=== PATIENT | female | born 1970 | race Caucasian/White ===

== ENCOUNTER 2016-03-14 15:59 | Emergency (ER) | payer OTHER ==
[~2016-03-14] VITALS: Ht 170.2 cm; Wt 56.5 kg
[~2016-03-14 15:59] MED LIST: ADVAIR 500/501 DISK IH; AMITIZA24 MICROGR PO; BOTOX100 UNITS IJ; CYCLOCORT TP; EFFEXOR XR150 MG PO; FIORICET,ESG1 TABLET PO; IMITREX100 MG PO; IMITREX25 MG PO; KLONOPIN1 MG PO; NEURONTIN300 MG PO; PREMARIN0.625 MG PO; PROAIR HFA8.5 GM IH; PROMETHAZINE HC25 M1 PO; PROTONIX40 MG PO; PROVENTIL,2.5 MG/3 M IH; REQUIP2 MG PO; SEROQUEL100 MG PO; TESSALON PERLE100 MG PO; TOPAMAX25 MG PO; UNABLEOBTAIN; ZANAFLEX4 MG PO; ZOHYDRO ER15 M1 PO
[2016-03-14 16:19] LABS: HEMATOCRIT 37.5 % (36.0-46.0); MCH 30.5 PG (29.0-34.0); MCHC 33.3 G/DL (30.0-36.0); MCV 91.5 FL (83-99); MEAN PLAT.VOLUME 11.1 uM^3 (9.5-12.4); PLATELET COUNT 165 K/uL (156-360); RBC DIS.WIDTH-CV 12.8 % (11.8-14.6); RBC DIS.WIDTH-SD 42.2 % (39-53); WHITE BLOOD COUNT 8.6 K/uL (4.1-10.2)
[2016-03-14 16:34] LABS: CHLORIDE 102 mEq/L (99-109); POTASSIUM 3.7 mEq/L (3.7-5.4); SODIUM 140 mEq/L (136-147)
[2016-03-14 16:35] LABS: GLUCOSE 94 mg/dL (70-99)
[2016-03-14 16:37] LABS: ANION GAP 9 MEQ/L (2-14)
[2016-03-14 16:39] LABS: GFR ESTIMATE (CALCULATED) > 59 mL/min/
[2016-03-14 16:40] LABS: UREA NITROGEN (BUN) 10 mg/dL (9-23)
[2016-03-14] MEDS ORDERED: VENTOLIN HFA18 GM IH (17:52)
[2016-03-14] MEDS ORDERED: PREDNISONE20 MG PO (17:52)
[2016-03-14] MEDS ORDERED: HYCODAN SYRUP480 ML PO (17:52)
[2016-03-14 18:04] VITALS: BP 101/68
== END 2016-03-14 18:06 | disposition home or self-care (01) ==
LOC: EME 15:59
DX: J06.9 Acute upper respiratory infection, unspecified (principal); J45.909 Unspecified asthma, uncomplicated; G43.909 Migraine, unspecified, not intractable, without status migrainosus; Z87.891 Personal history of nicotine dependence
CPT/HCPCS: 71020; 80048; 85027; 99281; 99284

== ENCOUNTER 2016-03-31 16:31 | Emergency (ER) | payer OTHER ==
[~2016-03-31] VITALS: Ht 170.2 cm; Wt 57.8 kg
[~2016-03-31 16:31] MED LIST changes: +HYCODAN SYRUP480 ML PO; +PREDNISONE20 MG PO; +VENTOLIN HFA18 GM IH
[2016-03-31 16:53] VITALS: BP 109/76
[2016-03-31 17:22] LABS: HEMATOCRIT 39.6 % (36.0-46.0); MCH 30.5 PG (29.0-34.0); MCHC 33.1 G/DL (30.0-36.0); MCV 92.3 FL (83-99); RBC DIS.WIDTH-CV 12.9 % (11.8-14.6); RBC DIS.WIDTH-SD 41.9 % (39-53); RED BLOOD COUNT 4.29 M/uL (3.80-5.20); WHITE BLOOD COUNT 8.9 K/uL (4.1-10.2)
[2016-03-31 17:31] LABS: MEAN PLAT.VOLUME 10.2 uM^3 (9.5-12.4)
[2016-03-31 17:32] LABS: CHLORIDE 104 mEq/L (99-109); PLATELET COUNT 270 K/uL (156-360); POTASSIUM 3.5 mEq/L (3.7-5.4); SODIUM 142 mEq/L (136-147)
[2016-03-31 17:34] LABS: GLUCOSE 76 mg/dL (70-99)
[2016-03-31 17:35] LABS: ANION GAP 13 MEQ/L (2-14)
[2016-03-31 17:37] LABS: GFR ESTIMATE (CALCULATED) > 59 mL/min/
[2016-03-31 17:38] LABS: UREA NITROGEN (BUN) 9 mg/dL (9-23)
== END 2016-03-31 18:49 | disposition left against medical advice (07) ==
LOC: EME 16:31 → RME 16:31
DX: R05 Cough (principal); R53.1 Weakness; R51 Headache; Z53.21 Procedure and treatment not carried out due to patient leaving prior to being seen by health care provider
CPT/HCPCS: 71020; 80048; 85027

== ENCOUNTER 2016-05-28 11:25 | Emergency (ER) | payer OTHER ==
[~2016-05-28] VITALS: Ht 170.2 cm; Wt 55.6 kg
[2016-05-28 14:19] VITALS: BP 115/69
== END 2016-05-28 14:22 | disposition home or self-care (01) ==
LOC: EME 11:25
DX: F43.9 Reaction to severe stress, unspecified (principal); G43.909 Migraine, unspecified, not intractable, without status migrainosus; F41.9 Anxiety disorder, unspecified; F33.2 Major depressive disorder, recurrent severe without psychotic features; F60.9 Personality disorder, unspecified; J45.909 Unspecified asthma, uncomplicated; J30.81 Allergic rhinitis due to animal (cat) (dog) hair and dander; Z88.1 Allergy status to other antibiotic agents; Z88.0 Allergy status to penicillin; Z91.041 Radiographic dye allergy status; J30.2 Other seasonal allergic rhinitis; Z88.8 Allergy status to other drugs, medicaments and biological substances; Z87.891 Personal history of nicotine dependence
CPT/HCPCS: 90837; 99281; 99285

== ENCOUNTER 2016-06-13 17:41 | Emergency (ER) | payer OTHER ==
[~2016-06-13] VITALS: Ht 170.2 cm; Wt 57.7 kg
[2016-06-13] MEDS ORDERED: PROVENTIL,2.5 MG/3 M IH (22:02)
[2016-06-13 22:18] VITALS: BP 107/71
== END 2016-06-13 22:22 | disposition home or self-care (01) ==
LOC: EME 17:41
DX: G43.909 Migraine, unspecified, not intractable, without status migrainosus (principal)
CPT/HCPCS: 99281; 99285; J1200; J1885; J2765; J7040; J7050

== ENCOUNTER 2016-07-22 13:59 | Emergency (ER) | payer OTHER ==
[~2016-07-22] VITALS: Ht 170.2 cm; Wt 56.6 kg
[2016-07-22 17:47] VITALS: BP 83/51
== END 2016-07-22 17:55 | disposition home or self-care (01) ==
LOC: EME 13:59
DX: G43.909 Migraine, unspecified, not intractable, without status migrainosus (principal); M25.532 Pain in left wrist; M25.432 Effusion, left wrist; J45.909 Unspecified asthma, uncomplicated; K21.9 Gastro-esophageal reflux disease without esophagitis; Z87.891 Personal history of nicotine dependence
CPT/HCPCS: 73110; 99281; 99285; J1200; J2765; J7030; J7050

== ENCOUNTER 2016-08-07 17:02 | Emergency (ER) | payer OTHER ==
[~2016-08-07] VITALS: Ht 170.2 cm; Wt 57.0 kg
[2016-08-07] MEDS ORDERED: LEVAQUIN750 MG PO (19:02)
[2016-08-07] MEDS ORDERED: VENTOLIN HFA18 GM IH (19:02)
[2016-08-07] MEDS ORDERED: HYCODAN SYRUP480 ML PO (19:02)
[2016-08-07 19:35] VITALS: BP 108/75
== END 2016-08-07 19:44 | disposition home or self-care (01) ==
LOC: EME 17:02
DX: J20.9 Acute bronchitis, unspecified (principal); J44.9 Chronic obstructive pulmonary disease, unspecified; Z87.891 Personal history of nicotine dependence; Z88.0 Allergy status to penicillin; Z91.041 Radiographic dye allergy status; Z88.8 Allergy status to other drugs, medicaments and biological substances
CPT/HCPCS: 71020; 94640; 99281; 99284

== ENCOUNTER 2016-08-16 16:47 | Inpatient (IN) | payer OTHER ==
[~2016-08-16] VITALS: Ht 170.2 cm; Wt 53.5 kg
[~2016-08-16 16:47] MED LIST changes: +LEVAQUIN750 MG PO
[2016-08-16 17:35] LABS: HEMATOCRIT 35.2 % (36.0-46.0); MCH 30.5 PG (29.0-34.0); MCHC 33.2 G/DL (30.0-36.0); MCV 91.7 FL (83-99); MEAN PLAT.VOLUME 10.3 uM^3 (9.5-12.4); PLATELET COUNT 254 K/uL (156-360); RBC DIS.WIDTH-CV 12.8 % (11.8-14.6); RBC DIS.WIDTH-SD 42.2 % (39-53); RED BLOOD COUNT 3.84 M/uL (3.80-5.20); WHITE BLOOD COUNT 18.1 K/uL (4.1-10.2)
[2016-08-16 17:43] LABS: CHLORIDE 101 mEq/L (99-109); POTASSIUM 3.5 mEq/L (3.7-5.4); SODIUM 136 mEq/L (136-147)
[2016-08-16 17:45] LABS: GLUCOSE 93 mg/dL (70-99)
[2016-08-16 17:47] LABS: ANION GAP 7 MEQ/L (2-14); TOTAL BILIRUBIN 0.5 mg/dL (0.0-1.0)
[2016-08-16 17:49] LABS: ALKALINE PHOSPHATASE 79 IU/L (3-129); GFR ESTIMATE (CALCULATED) > 59 mL/min/
[2016-08-16 17:50] LABS: UREA NITROGEN (BUN) 10 mg/dL (9-23)
[2016-08-16 17:52] LABS: LIPASE 20 U/L (1.0-51.0)
[2016-08-16] MEDS ORDERED: BOTOX200 UNIT IJ (19:06)
[2016-08-16] MEDS ORDERED: MIRTAZAPINE15 MG PO (19:07)
[2016-08-16] MEDS ORDERED: PROMETHAZINE HC25 M1 PO (19:07)
[2016-08-16] MEDS ORDERED: SYMBICORT60 INHALAT IH (19:08)
[2016-08-17 05:52] LABS: EOSINOPHIL (%) 0.1 % (0-5); HEMATOCRIT 31.7 % (36.0-46.0); IMMATURE GRANULOCYTE (%) 0.6 % (0.0-0.7); IMMATURE GRANULOCYTE COUNT 0.1 K/uL; INSTRUMENT ABS NEUTROPHIL CT 8.1 K/uL; LYMPHOCYTE COUNT 1.8 K/uL (1.0-2.8); MCH 29.9 PG (29.0-34.0); MCHC 32.2 G/DL (30.0-36.0); MEAN PLAT.VOLUME 9.7 uM^3 (9.5-12.4); MONOCYTE (%) 9.4 % (3-12); NEUTROPHIL (%) 73.1 % (45-76); NEUTROPHIL COUNT 8.1 K/uL (1.8-6.4); PLATELET COUNT 201 K/uL (156-360); RED BLOOD COUNT 3.41 M/uL (3.80-5.20)
[2016-08-17 06:02] LABS: POTASSIUM 3.5 mEq/L (3.7-5.4); SODIUM 142 mEq/L (136-147)
[2016-08-17 06:03] LABS: GLUCOSE 100 mg/dL (70-99)
[2016-08-17 06:04] LABS: CHLORIDE 115 mEq/L (99-109)
[2016-08-17 06:05] LABS: ANION GAP 5 MEQ/L (2-14)
[2016-08-17 06:07] LABS: GFR ESTIMATE (CALCULATED) > 59 mL/min/
[2016-08-17 06:08] LABS: UREA NITROGEN (BUN) 7 mg/dL (9-23)
[2016-08-17 10:30] VITALS: BP 109/71
[2016-08-17 15:45] VITALS: BP 91/54
[2016-08-17 16:41] VITALS: BP 93/63
[2016-08-17 20:16] VITALS: BP 99/67
[2016-08-17 22:34] VITALS: BP 99/67
[2016-08-18] VITALS (8 sets, daily range): BP systolic 93–132; BP diastolic 53–71
[2016-08-18 07:24] LABS: EOSINOPHIL (%) 0.1 % (0-5); HEMATOCRIT 28.4 % (36.0-46.0); IMMATURE GRANULOCYTE (%) 0.5 % (0.0-0.7); INSTRUMENT ABS NEUTROPHIL CT 5.5 K/uL; LYMPHOCYTE COUNT 1.9 K/uL (1.0-2.8); MCH 30.2 PG (29.0-34.0); MCV 94.4 FL (83-99); MEAN PLAT.VOLUME 10.9 uM^3 (9.5-12.4); MONOCYTE (%) 6.2 % (3-12); MONOCYTE COUNT 0.5 K/uL (0-0.8); NEUTROPHIL (%) 69.3 % (45-76); NEUTROPHIL COUNT 5.5 K/uL (1.8-6.4); PLATELET COUNT 214 K/uL (156-360); RBC DIS.WIDTH-CV 13.2 % (11.8-14.6); RBC DIS.WIDTH-SD 45.6 % (39-53); RED BLOOD COUNT 3.01 M/uL (3.80-5.20)
[2016-08-18 08:01] LABS: ANION GAP 6 MEQ/L (2-14); CHLORIDE 115 MEQ/L (99-109); GFR ESTIMATE (CALCULATED) > 59 mL/min/; GLUCOSE 82 mg/dL (70-99); IRON 36 MCG/DL (35-150); POTASSIUM 4.1 MEQ/L (3.7-5.4); SAMPLE HEMOLYSIS CHECK 0; SAMPLE ICTERIC CHECK 0; SAMPLE LIPEMIA CHECK 0; SODIUM 147 MEQ/L (136-147); UREA NITROGEN (BUN) 4 mg/dL (9-23)
[2016-08-18 09:49] LABS: HIV INDEX 0.09; HIV-1/2 AB/AG COMBO Nonreactive
[2016-08-19 08:00] VITALS: BP 105/64
[2016-08-19 13:35] VITALS: BP 105/73
[2016-08-19 17:03] VITALS: BP 123/74
[2016-08-20 00:45] VITALS: BP 104/65
[2016-08-20 07:49] VITALS: BP 122/83
[2016-08-20 18:04] VITALS: BP 124/79
[2016-08-21 06:45] VITALS: BP 112/74
[2016-08-21] MEDS ORDERED: PROMETHAZINE HC25 M1 PO (13:48)
[2016-08-21] MEDS ORDERED: BENZONATATE100 MG PO (13:49)
[2016-08-21] MEDS ORDERED: CEFTIN500 MG PO (13:49)
[2016-08-21] MEDS ORDERED: [UNRECOGNIZED DRUG - OTHER] PO (13:50)
[2016-08-21] MEDS ORDERED: PROTONIX40 MG PO (13:51)
[2016-08-21] MEDS ORDERED: TRAMADOL HCL50 MG PO (13:55)
[2016-08-21 15:00] VITALS: BP 116/73
== END 2016-08-21 15:37 | disposition home or self-care (01) | DRG 871 ==
LOC: EME 16:47 → 5EAST 20:42 → EDOF 20:42 → 5EAST 08-17 16:36
PROVIDERS: Hospitalist; Internal Medicine; Physician Assistant
DX: A41.9 Sepsis, unspecified organism (principal); J44.0 Chronic obstructive pulmonary disease with (acute) lower respiratory infection; J15.9 Unspecified bacterial pneumonia; Z87.01 Personal history of pneumonia (recurrent); Z87.891 Personal history of nicotine dependence; E87.6 Hypokalemia; G43.909 Migraine, unspecified, not intractable, without status migrainosus; E86.0 Dehydration; K52.9 Noninfective gastroenteritis and colitis, unspecified; F32.9 Major depressive disorder, single episode, unspecified; K59.09 Other constipation; R63.4 Abnormal weight loss; D64.9 Anemia, unspecified
CPT/HCPCS: 71020; 71250; 74176; 80048; 80053; 81003; 82607; 82747 90; 83540; 83605; 83690; 84466; 85025; 85027; 86703; 87040; 87070; 87205; 87449; 94640; 94640 76; 99202; 99281; 99285; J0456; J0696; J1650; J2270; J7030; J7050; Q0169

== ENCOUNTER 2017-02-13 16:25 | Emergency (ER) | payer OTHER ==
[~2017-02-13] VITALS: Ht 170.2 cm; Wt 59.9 kg
[~2017-02-13 16:25] MED LIST changes: +BENZONATATE100 MG PO; +BOTOX200 UNIT IJ; +CEFTIN500 MG PO; +MIRTAZAPINE15 MG PO; +SYMBICORT60 INHALAT IH; +TRAMADOL HCL50 MG PO; +[UNRECOGNIZED DRUG - OTHER] PO
[2017-02-13 17:50] LABS: ADD MIUA? YES; BILIRUBIN NEGATIVE; BLOOD NEGATIVE; COLOR YELLOW ((YELLOW)); GLUCOSE (STRIP) NEGATIVE; KETONES NEGATIVE; LEUKOCYTES TRACE; NITRITE NEGATIVE; PROTEIN (STRIP) NEGATIVE; SPECIFIC GRAVITY 1.006 (1.000-1.030); UROBILINOGEN 0.2 MG/DL (0.2-1.0)
[2017-02-13 17:58] LABS: BACTERIA RARE /HPF; EPITHELIAL CELLS RARE /HPF; MUCUS TRACE /LPF; RED BLOOD CELLS 0-5 /HPF (0-5); WHITE BLOOD CELLS 0-5 /HPF (0-5)
[2017-02-13 19:19] LABS: HEMATOCRIT 34.4 % (36.0-46.0); MCH 30.6 PG (29.0-34.0); MCHC 33.1 G/DL (30.0-36.0); MCV 92.2 FL (83-99); MEAN PLAT.VOLUME 11.1 uM^3 (9.5-12.4); PLATELET COUNT 154 K/uL (156-360); RBC DIS.WIDTH-CV 12.9 % (11.8-14.6); RBC DIS.WIDTH-SD 43.8 % (39-53); RED BLOOD COUNT 3.73 M/uL (3.80-5.20); WHITE BLOOD COUNT 6.1 K/uL (4.1-10.2)
[2017-02-13 19:30] LABS: CHLORIDE 111 mEq/L (99-109); POTASSIUM 4.9 mEq/L (3.7-5.4); SODIUM 143 mEq/L (136-147)
[2017-02-13 19:32] LABS: GLUCOSE 103 mg/dL (70-99)
[2017-02-13 19:33] LABS: ANION GAP 7 MEQ/L (2-14)
[2017-02-13 19:34] LABS: TOTAL BILIRUBIN 0.2 mg/dL (0.0-1.0)
[2017-02-13 19:35] LABS: ALKALINE PHOSPHATASE 90 IU/L (3-129)
[2017-02-13 19:36] LABS: GFR ESTIMATE (CALCULATED) > 59 mL/min/
[2017-02-13 19:37] LABS: DIRECT BILIRUBIN 0.1 mg/dL (0.0-0.3); UREA NITROGEN (BUN) 11 mg/dL (9-23)
[2017-02-13 19:39] LABS: LIPASE 53 U/L (1.0-51.0)
[2017-02-13] MEDS ORDERED: IMITREX100 MG PO (20:23)
[2017-02-13] MEDS ORDERED: FIORICET 50-301 EAC1 PO (20:23)
[2017-02-13] MEDS ORDERED: REGLAN10 MG PO (20:23)
[2017-02-13 21:04] VITALS: BP 100/73
== END 2017-02-13 21:05 | disposition home or self-care (01) ==
LOC: EME 16:25
PROVIDERS: Physician Assistant
DX: G43.909 Migraine, unspecified, not intractable, without status migrainosus (principal); R10.32 Left lower quadrant pain; R30.0 Dysuria; R11.2 Nausea with vomiting, unspecified; M54.5 Low back pain; Z87.442 Personal history of urinary calculi; J45.909 Unspecified asthma, uncomplicated; E05.90 Thyrotoxicosis, unspecified without thyrotoxic crisis or storm; F41.9 Anxiety disorder, unspecified; Z90.49 Acquired absence of other specified parts of digestive tract; Z90.710 Acquired absence of both cervix and uterus; Z87.891 Personal history of nicotine dependence; Z88.0 Allergy status to penicillin; Z88.1 Allergy status to other antibiotic agents; Z91.041 Radiographic dye allergy status; Z88.8 Allergy status to other drugs, medicaments and biological substances
CPT/HCPCS: 74176; 80048; 80076; 81003; 83690; 85027; 87086; 99281; 99285; J1100; J1200; J2765; J7030

== ENCOUNTER 2017-04-30 17:58 | Emergency (ER) | payer OTHER ==
[~2017-04-30] VITALS: Ht 170.2 cm; Wt 58.5 kg
[~2017-04-30 17:58] MED LIST changes: +FIORICET 50-301 EAC1 PO; +REGLAN10 MG PO
[2017-04-30 23:22] VITALS: BP 94/59
== END 2017-04-30 23:30 | disposition home or self-care (01) ==
LOC: EME 17:58
DX: R51 Headache (principal); J45.909 Unspecified asthma, uncomplicated; K58.9 Irritable bowel syndrome, unspecified; F41.9 Anxiety disorder, unspecified; Z87.891 Personal history of nicotine dependence; Z90.49 Acquired absence of other specified parts of digestive tract; Z90.710 Acquired absence of both cervix and uterus; Z88.1 Allergy status to other antibiotic agents; Z88.0 Allergy status to penicillin; Z91.041 Radiographic dye allergy status; Z88.8 Allergy status to other drugs, medicaments and biological substances
CPT/HCPCS: 99281; 99284; J1200; J2765

== ENCOUNTER 2017-09-21 15:07 | Emergency (ER) | payer OTHER ==
[~2017-09-21] VITALS: Ht 170.2 cm; Wt 61.8 kg
[2017-09-21] MEDS ORDERED: FIORICET,ESG1 TABLET PO (17:24)
[2017-09-21] MEDS ORDERED: ZOFRAN ODT4 MG PO (17:24)
[2017-09-21 18:37] VITALS: BP 107/72
== END 2017-09-21 18:41 | disposition home or self-care (01) ==
LOC: EME 15:07
DX: G43.909 Migraine, unspecified, not intractable, without status migrainosus (principal); J45.909 Unspecified asthma, uncomplicated; F41.9 Anxiety disorder, unspecified; K58.9 Irritable bowel syndrome, unspecified; Z88.0 Allergy status to penicillin; Z87.891 Personal history of nicotine dependence; Z87.442 Personal history of urinary calculi
CPT/HCPCS: 99281; 99284; J1200; J2765; J3010; J7030

== ENCOUNTER 2017-11-03 10:42 | Emergency (ER) | payer OTHER ==
[~2017-11-03] VITALS: Ht 170.2 cm; Wt 61.2 kg
[~2017-11-03 10:42] MED LIST changes: +ZOFRAN ODT4 MG PO
[2017-11-03] MEDS ORDERED: FIORICET 50-301 EAC1 PO (15:04)
[2017-11-03] MEDS ORDERED: KENALOG,ARISTOC15 G1 TP (15:22)
[2017-11-03 15:23] VITALS: BP 104/73
== END 2017-11-03 15:26 | disposition home or self-care (01) ==
LOC: EME 10:42
DX: G43.909 Migraine, unspecified, not intractable, without status migrainosus (principal); L29.9 Pruritus, unspecified; J45.909 Unspecified asthma, uncomplicated; Z88.0 Allergy status to penicillin; Z87.891 Personal history of nicotine dependence
CPT/HCPCS: 99281; 99284; J0780; J1100; J1200; J2765; J7030